=== PATIENT | female | born 1980 | race Caucasian/White ===

== ENCOUNTER 2025-07-23 15:58 | Outpatient (CLI) | payer BC, SELFPAY | END 2025-07-23 15:59 | disposition home or self-care (01) | PROVIDERS: PCP Nurse Practitioner Family; Visit Provider Registered Nurse | DX: N92.0 Excessive and frequent menstruation with regular cycle (principal) | CPT/HCPCS: 82728; 83540; 83550; 84443 ==

== ENCOUNTER 2025-07-28 13:40 | Outpatient (CLI) | payer BC, SELFPAY ==
--- NOTE | 2025-07-28 14:00 | CRLHL7_ITS ---
For Patients: As a result of the Century Cures Act, medical imaging exams and procedure reports are released immediately into your electronic medical record. You may view this report before your referring provider. If you have questions, please contact your health care provider. INDICATION: AUB, menorrhagia COMPARISON: None. TECHNIQUE: 2D pimentel-scale and color Doppler images were acquired of the pelvis using a transabdominal and transvaginal approach. Transvaginal imaging performed to better visualize the endometrial stripe and ovaries. FINDINGS: Sonographic images demonstrate a normal size and smooth outer contour of the uterus. Uterus measures 8.6 cm in length by 4.2 cm in AP diameter by 5.4 cm in transverse dimension. Small intramural fibroid is present within the right myometrium and measures 11 x 7 x 10 millimeters. The endometrial lining measures 11.3 mm in composite thickness. The right ovary measures 3.2 x 2.8 x 2.5 cm in size and the left ovary measures 5.7 x 4.3 x 3.7 cm. The ovaries demonstrate normal arterial and venous blood flow on color Doppler analysis. There are no suspicious fluid collections within the cul-de-sac. Simple left ovarian cyst measures 4.2 x 3.3 x 3.3 cm. IMPRESSION: Endometrial thickness 11.3 millimeters. No endometrial fluid. Intramural fibroid measures 11 millimeters. Simple left ovarian cyst measures 4.2 cm. Dictated by Andrade Stover MD @ 07/28/2025 4:30:08 PM (Electronically Signed)
== END 2025-07-28 13:41 | disposition home or self-care (01) ==
LOC: US 13:40
PROVIDERS: PCP Nurse Practitioner Family; Visit Provider Registered Nurse
DX: N92.0 Excessive and frequent menstruation with regular cycle (principal); R93.89 Abnormal findings on diagnostic imaging of other specified body structures; D25.1 Intramural leiomyoma of uterus; N83.292 Other ovarian cyst, left side
CPT/HCPCS: 76830; 76856

== ENCOUNTER 2025-11-06 06:09 | Day surgery (SDC) | payer BC, SELFPAY ==
[2025-11-06] VITALS (18 sets, daily range): BP systolic 99–124; BP diastolic 61–84; PULSE 55–84; RESP 13–16; TEMP 36.2–37.1; O2SAT 92–98; BMI 28.5
[2025-11-06 06:56] LABS: Hemoglobin* 14.7 gm/dL (12.0-16.0)
[2025-11-06] MEDS: SODIUM CHLORIDE 0.9 % (FLUSH) 10 ML SYRINGE IVF (07:00)
[2025-11-06] MEDS: LACTATED RINGERS 1000 ML 1,000 ML 100 ML IV ×2 (07:00→07:36)
[2025-11-06] MEDS: ACETAMINOPHEN 500 MG TABLET 1000 MG PO ×2 (07:00→13:00)
[2025-11-06] MEDS: GABAPENTIN 600 MG TABLET PO (07:00)
[2025-11-06] MEDS: SCOPOLAMINE 1 MG/3 DAY PATCH 1 PATCH TRANSDERMA (07:00)
[2025-11-06 07:13] LABS: Creatinine* 0.8 mg/dL (0.5-1.5); Est. Creatinine Clearance* 75.01; Estimated Glomerular Filt Rate 94 ml/min
--- NOTE | 2025-11-06 07:17 | W.PM.H&PU ---
History & Physical Update History & Physical Update H&P Reviewed and patient assessed: The following changes are noted below H&P Updates: S/P iron infusion and hemoglobin has significantly improved. No new episodes of heavy bleeding and has not been utilizing progesterone. Would prefer to go home today.
[2025-11-06 07:26] LABS: HCG Qualitative Serum* Negative (Negative)
--- NOTE | 2025-11-06 07:36 | P.NB_ITS ---
Nerve Block Nerve Block Time Seen by Provider: 07:25 Date Seen: 11/06/25 Type of block requested by surgeon for post-operative analgesia: TAP Side: bilateral Time out performed: Yes Verification of patient name: Yes Verification of date of : Yes Site marking: site marked Name of person performing procedure: Bryan Continuous monitoring Was continuous monitoring of O2 sat, B/P, provider relations representative, recorded every 15 minutes?: Yes Procedure Checklist: sterile prep, needles and gloves Ultrasound guided. Images saved: Yes Medications given in 5ml increments after negative aspiration: Marcaine %: 0.25 mL: 30 Needle gauge: 20 and Exparel mL: 10 Patient tolerated procedure well: Yes Additional comments: Needle noted between internal oblique and transversus abdominus. Local spread visualized Block Charges Block Charge (with Pro Fee): TAP Bilateral Use of Ultrasound Machine for Block: Yes- US Guidance/pain block
--- NOTE | 2025-11-06 07:36 | P.ANES_ITS ---
Anesthesia Charges Start Date/Time Anesthesia Start Date: 11/06/25 Anesthesia Start Time: 07:18 Stop Date/Time Anesthesia Stop Date: 11/06/25 Anesthesia Stop Time: 10:01 Coding CPT Codes CPT Codes: ANESTH SURG LOWER ABDOMEN - 98912 ([id number]) P2 - PATIENT W/MILD SYST DISEASE, QK - CUT OUT MARKER 2-4 CNCRNT ANES PROC, QX - WIND TURBINE DESIGN ENGINEER SVC W/ MD MED DIRECTION
--- NOTE | 2025-11-06 07:36 | W.ANESCHARGE ---
Anesthesia Charges Start Date/Time Anesthesia Start Date: 11/06/25 Anesthesia Start Time: 07:18 Stop Date/Time Anesthesia Stop Date: 11/06/25 Anesthesia Stop Time: 10:01 Coding CPT Codes CPT Codes: ANESTH SURG LOWER ABDOMEN - 08176 ([id number]) P2 - PATIENT W/MILD SYST DISEASE, QK - PROCUREMENT TECHNICIAN 2-4 CNCRNT ANES PROC, QX - HEALTHCARE EDUCATOR SVC W/ MD MED DIRECTION
[2025-11-06] MEDS: BUPIVACAINE 0.25% 30 ML INJECTION (08:15)
--- NOTE | 2025-11-06 09:32 | SUR.OPER ---
uterus 156 grams
--- NOTE | 2025-11-06 09:50 | P.GYNPRC_ITS ---
Procedure Note Date of procedure: 11/06/25 Will [facility] bill your pro fee for this procedure?: Yes Pre-op diagnosis: Abnormal uterine bleeding-leiomyomas and endometrial polyps, persistent left ovarian cyst Post-op diagnosis: Same, bladder mucosa lesion Procedure: Total laparoscopic hysterectomy, left oophorectomy, right paratubal cyst removal, cystoscopy Anesthesia: GETA Complications: None Surgeon: Angelita Gallo MD Motor And Generator Brush Cutter: Saida Lundy Estimated blood loss (mL): 20 IV fluids (mL): 2,000 Urine Output (mL): 200 (Bright yellow tinged at end of procedure due to Fluorescein) Pathology: specimen obtained, sent to pathology (Uterus, cervix, left ovary and right paratubal) Condition: stable Disposition: same day Findings: Normal external genitalia, cervix large and multiparous w/o gross lesions or abnormal discharge. Uterine sound 9 cm. Intra abdominal survey: grossly normal liver, gallbladder, stomach and intestine. Uterus anteverted of about 9cm, evidence of prior bilateral salpingectomy, left ovary with cystic structure of about 3cm, right ovary with small cystic structure of about 1-2 cm that looked like a simple cyst, what looks like a paratubal cyst on the right side as well of about 2cm. Bladder reflection thin adhesion to the lower uterine segment. Cystoscopy: Intact bladder mucosa- no defects or suture material, right ureteral jet seen, left ureter noted to vermiculate and with adequate urine spill, not as brisk as in the right side. On the left side bladder mucosa what looks like a raised lesion, also on the orifice of the left ureter what looks like a small powder lesion- like in endometriosis- will recommend urology consult for outpatient cystoscopy. Procedure Description: DESCRIPTION OF PROCEDURE: After obtaining informed consent, the patient was taken to the operating room where general anesthesia was obtained without difficulty. She was prepared and draped in the normal sterile fashion in the low dorsal lithotomy position. A Painting catheter was inserted into the bladder and left to drain by gravity. A medium Graves open-sided speculum was introduced into the vagina. The cervix was visualized and grasped along its anterior lip with a single-tooth tenaculum. The uterus was gently sounded. Sound length was found to be 9 cm. Cervical dilation completed with Hegar dilators. I then placed a large VCare uterine manipulator. The tenaculum and speculum were removed. The green VCare cup was digitally pressed up against the cervix and then cinched in place with the blue accessory cup. I then changed gloves and my attention was turned to the abdomen. The superior aspect of the umbilical fold was injected with 0.5% Marcaine plain. A 5 mm vertical incision was then made within the umbilical fold using a scalpel. A direct entry technique was used, a 5 mm laparoscopic port with CO2 gas set at 5mmHg was introduced under direct visualization. The trocar was removed leaving the sleeve in place. The CO2 gas flow was turned to high flow to achieve pneumoperitoneum. The 5 mm laparoscope was used then to carefully inspect the abdomen and pelvis with findings noted above. Pictures were taken for documentation purposes. The patient was placed in Trendelenburg positioning. Two additional ports were placed in the right and left lower quadrants under direct visualization after first anesthetizing the skin and fascia with 0.5% Marcaine plain. On the left side a 11mm port was utilized and on the right side a 5mm port placed. An additional 5mm port was placed on the abdomen at the level of the umbilicus to the left of umbilicus, about 5-6 cm lateral from umbilicus under direct visualization. Once the ports were in place, the VCare manipulator was used to elevate the uterus. The VCare cup was visualized and palpated with a blunt grasper. Bilateral ureters identified in the normal anatomical position.Starting on the left side the left ovary was grasped and the left infundibulopelvic ligament was clamped, coagulated and cut utilizing LigaSure bipolar device. Hemostasis secured. The left round ligament was then sealed in a wide swath and transected with the LigaSure, excellent hemostasis was obtained. The broad ligament was then opened using the LigaSure anteriorly and posteriorly along the cervix from the left within the confines of the VCare cup. Pressure was maintained on the uterine manipulator the whole time. The left uterine vessels were sealed in a wide swath and transected with the LigaSure, then the tissues over the VCare cup edge on the left side were thinned using the LigaSure to the midline posteriorly and anteriorly so that the fascial layer could be identified. What looked like a small paratubal cyst on the right side was then grasped and utilizing LigaSure bipolar device base of cyst was clamped, coagulated and cut with LigaSure. Hemostasis secured. The right utero-ovarian ligament sealed and transected in a wide swath with the LigaSure device. Hemostasis secured. The right round ligament was then sealed in a wide swath and transected with the LigaSure, excellent hemostasis was obtained. The broad ligament was then opened using the LigaSure anteriorly and posteriorly along the cervix from the right within the confines of the VCare cup. Pressure was maintained on the uterine manipulator the whole time. The right uterine vessels were sealed in a wide swath and transected with the LigaSure, then the tissues over the VCare cup edge on the right side were thinned using the LigaSure to the midline posteriorly and anteriorly so that the fascial layer could be identified. Once an adequate dissection was made circumferentially, monopolar laparoscopic spatula was utilized to dissect until identification of the green Vcare cup, tissue dissected circumferentially around the cervix within the groove of the VCare cup. Once the dissection was completed circumferentially, from the vagina the uterine manipulator and the uterus and attached left ovary were removed. A g love with sponges was left in the vagina to aid in maintenance of pneumoperitoneum. I again changed gloves and attention was placed to the abdomen again. The vaginal cuff was reapproximated in a running fashion with a V-Loc suture starting from the right side and running across to the left and then back to the midline where the suture was cut flush with the tissues. The pelvis was copiously irrigated and hemostasis visualized. Preparations were then made for cystoscopy. Fluorescein was administered intravenously along with the IV fluids. The Painting catheter was removed. The patient was flattened out. Cystoscopy was performed using sterile normal saline as distending medium. The bladder was carefully inspected and noted to be free of filling defects or suture material. The right ureteral jet was easily noted. On the left side ureteral orifice was easily identified, vermiculation and Fluorescein tinged urine was noted on multiple occasions, but it was not a jet as in the right side. Pictures taken for documentation purposes. The cystoscope was then removed. The Painting catheter was replaced into the bladder. Speculum evaluation of the vaginal cuff was completed at this moment, showing adequate closure and no evidence of bleeding of escape of pneumoperitoneum. Attention was once again turned to the abdomen. The abdomen and pelvis were again irrigated and inspected for hemostasis. Marina was placed over excision sites to further secure hemostasis. Attention was then placed to the 11mm port site and under direct visualization using a Tyrone-Jessica system the fascia was closed with Vicryl 0 suture. All instruments were then removed under direct visualization. Pneumoperitoneum was allowed to escape. The skin at all port sites was closed in a subcuticular fashion with 4-0 Monocryl. LiquiBand was then placed over the incisions. The patient tolerated the procedure well. Sponge, lap, needle, and instrument counts were reported as correct x2. The patient was taken to the recovery room awake and in stable condition. She did receive 2g of Ancef preoperatively as infection prophylaxis. PATHOLOGY SPECIMEN(S): Uterus and cervix, left ovary and right paratubal cyst.
--- NOTE | 2025-11-06 09:59 | P.ANES_ITS ---
Anesthesia Charges Start Date/Time Anesthesia Start Date: 11/06/25 Anesthesia Start Time: 07:18 Stop Date/Time Anesthesia Stop Date: 11/06/25 Anesthesia Stop Time: 10:01 Coding CPT Codes CPT Codes: ANESTH SURG LOWER ABDOMEN - 27905 ([id number]) P1 - NORMAL HEALTHY PATIENT, QK - DRAFTER ELECTRONIC 2-4 CNCRNT ANEMichael PROC, QX - TRAILER TRUCK DRIVER SVLesli W/ MED DIRECTION
--- NOTE | 2025-11-06 09:59 | W.ANESCHARGE ---
Anesthesia Charges Start Date/Time Anesthesia Start Date: 11/06/25 Anesthesia Start Time: 07:18 Stop Date/Time Anesthesia Stop Date: 11/06/25 Anesthesia Stop Time: 10:01 Coding CPT Codes CPT Codes: ANESTH SURG LOWER ABDOMEN - 41607 ([id number]) P1 - NORMAL HEALTHY PATIENT, QK - FINISH CARPENTER 2-4 CNCRNT ANEMichael PROC, QX - COUNSELOR AID SVLesli W/ MED DIRECTION
[2025-11-06] MEDS: LACTATED RINGERS 1000 ML 1,000 ML 35 ML IV (10:23)
--- NOTE | 2025-11-06 14:22 | SUR.PHASEII ---
1330: 300cc warm saline instilled into bladder.
--- NOTE | 2025-11-06 14:51 | SUR.PHASEII ---
1415: Pt was able to urinate 50cc after bladder fill with saline. Dr. Kay updated. Ok to discharge patient if she urinates 100cc more urine.
== END 2025-11-06 15:25 | disposition home or self-care (01) ==
PROVIDERS: PCP Nurse Practitioner Family; Visit Provider Obstetrics & Gynecology
PROC: 0UT94ZZ Resection of Uterus, Percutaneous Endoscopic Approach (ICD-10-PCS; CPT 58571; principal; 2025-11-06 07:15)
DX: N93.8 Other specified abnormal uterine and vaginal bleeding (principal); D25.9 Leiomyoma of uterus, unspecified; N83.292 Other ovarian cyst, left side; G89.18 Other acute postprocedural pain
CPT/HCPCS: 58571; 49186; 00840; 36415; 64488; 76942; 81025; 82565; 84702; 84703; 85018; 86850; 86900; 86901; A4314; A9270; J0665; J0666; J0690; J1100; J1630; J1885; J2405; J2704; J2710; J3475; J3490; J7120